=== PATIENT | female | born 1995 | race Caucasian/White ===

== ENCOUNTER 2023-11-10 11:08 | Day surgery (SDC) | payer BC, SELFPAY ==
[2023-11-10] VITALS (7 sets, daily range): BP systolic 114–134; BP diastolic 70–82; PULSE 62–85; RESP 16; TEMP 36.3–36.8; O2SAT 96–100; BMI 28.5
[2023-11-10 11:50] LABS: Internal QC Validated? YES +Cl - CLEAR BKGD; Pregnancy, Urine Negative Negative
--- NOTE | 2023-11-10 13:49 | PCM.HP.BLA ---
History and Physical Date of Admission: 11/10/23 PROBLEM: adnexal mass, pelvic pain ? PAST SURGICAL HISTORY: PAST SURGICAL HISTORY PAST SURGICAL HISTORY Procedure Laterality Date ? MYRINGOTOMY ASPIR&/EUSTACHIAN TUBE NFLTJ ANES ? ? ? Myringotomy/tubes, age 22 months ? TONSILLECTOMY PRIMARY/SECONDARY <AGE 12 ? 08/31/2017 ? Tonsillectomy ? ? PAST MEDICAL HISTORY: PAST MEDICAL HISTORY PAST MEDICAL HISTORY Diagnosis Date ? Chronic insomnia 04/07/2018 ? Elbow fracture 2020 ? bilateral - tripped by a dog ? GERD (gastroesophageal reflux disease) 10/15/2013 ? PMH - PAST MEDICAL HISTORY OF ? ? History of varicella disease age 9 ? Spastic colitis 11/04/2011 ? Sprain and strain of unspecified site of shoulder and upper arm 12/10/2010 ? ? SUBJECTIVE: Pelvic pain x 1 month that is worsening ? SOCIAL HISTORY: SOCIAL HISTORY Social History ? Tobacco Use ? Smoking status: Never ? Smokeless tobacco: Never ? Tobacco comments: ? ? exposed to secondhand smoke Vaping Use ? Vaping Use: Never used Substance Use Topics ? Alcohol use: Yes ? ? Comment: Rare ? Drug use: Yes ? ? Types: Marijuana ? ? ALLERGIES ALLERGIES Allergen Reactions ? Shellfish Containin* Anaphylaxis ? Bactrim [Sulfametho* Rash ? Sulfa (Sulfonamide * Rash ? Current Outpatient Medications on File Prior to Visit Medication Sig ? amoxicillin-clavulanate potassium (AUGMENTIN) 875-125 mg per tablet Take 1 tablet by mouth two times a day for 10 days. ? dicyclomine (BENTYL) 10 mg capsule Take 1 capsule by mouth two times a day as needed. ? L.acidophilus-B.animalis-B.longum (FLORAJEN DIGESTION) 15 billion cell capsule Take 1 capsule by mouth once daily. ? etonogestrel (NEXPLANON) subdermal implant 68 mg 1 Each by SUBDERMAL route as directed. ? lamoTRIgine (LAMICTAL) 200 mg tablet ? ? escitalopram oxalate (LEXAPRO) 10 mg tablet Take 1 tablet by mouth once daily. (Patient taking differently: Take 20 mg by mouth once daily. Patient states she takes 1/2 tab daily) ? fexofenadine ER (SUSAN ALLERGY) 180 mg tablet Take 1 tablet by mouth once daily. ? No current facility-administered medications on file prior to visit. ? OBJECTIVE: ? VITALS: BP 118/64 Wt 186 lb (84.4 kg) LMP 10/16/2023 (Exact Date) BMI 28.28 kg/m? ? HEENT: Normocephalic, atraumatic, Mucus membranes moist without lesions. ? SKIN: No lesions. ? CHEST: No increased respiratory effort. ? HEART: Regular rate. ? BACK: Nontender with no CVA tenderness. ? ABDOMEN: Soft, +tender, non-distended, no hepatosplenomegaly. ? LOWER EXTREMITIES: There was no pitting edema, no palpable cords and no skin changes. ? ? ? ASSESSMENT: pre op, adnexal mass, pelvic pain ? PLAN: 1) Discussed likely dermoid cyst of ovary based on pelvic ultrasound. Given pain worsening over last 1 month, recommend surgical intervention. Discussed r/b/a laparoscopic removal of adnexal mass, possible oophorectomy, possible salpingectomy, possible laparotomy. She understands an ovary and/or fallopian tube could be removed. She understands she may need an open incision to remove the mass. The rationale for the proposed surgery was discussed in addition to risks, benefits, and alternatives. General pre- and post-operative care was reviewed. Questions were answered. After discussion, the patient indicated a desire to proceed with the planned surgery. Assessment & Plan Assessment/Plan (1) Acute pelvic pain, female: (2) Ovarian cyst, left: PLAN: Plan Patient had acute worsening of pain today and was seen in office. Has nausea, unable to eat b/c of pain, unable to rest or get comfortable, required dilauded in ED. D/w her suspicion for torsion or intermittent torsion even w/ blood flow noted on today's pelvic US. D/w her r/b/a to laparascopy w/ reversal of torsion and possible ovarian cystectomy, possible oophorectomy or salpingoophorectomy depending on findings. Quetisons answered. Consent resigned. will proceed today TOMASZ.
--- NOTE | 2023-11-10 14:32 | PCM.DC ---
Discharge Instructions Diet Discharge Diet: No restrictions (Increase fluid intake for the next 48 hours.) Activity Discharge Activity: May Shower Return to work on:: 11/17/23 May resume sexual activity in: 1-2 weeks Additional Activity Instructions:: Ambulate often the next week after surgery. Nothing in the vagina for 7-14 days days. Dressing / Incision Call your doctor if your incision/area has: Continuous Slow Oozing, Sudden Increased Bleeding, Increased Pain/ Swelling, Increased Redness and Foul Smelling Discharge Call your doctor if you observe: Fever of 101 or Higher Additional Dressing/Incision Instructions:: Your incisions have skin glue, they can get wet. Leave the glue on for at least 10 days. No lifting > 15 lbs x 2 weeks Follow Up Care Please Follow Up With: Evelia Chapa MD When: Call [phone] for a postop visit or as needed or send a MeetCast message for nonurgent concerns. Test Results: Test results from this visit will be discussed in further detail at your follow-up appointment, if applicable. Discharge Plan Admission Primary Reason for Your Visit: pelvic pain, left ovarian dermoid cysts, left ovarian cystectomies Attending Provider: Evelia Chapa Primary Care Provider: CHEKO AHMADI Discharge Orders/Prescriptions Prescriptions: New ibuprofen [ibuprofen] 600 mg tablet 600 mg PO Q6H PRN (Reason: Pain) 20 Days Qty: 60 1RF Continued lamotrigine 200 mg tablet 200 mg PO DAILY dicyclomine 10 mg capsule 10 mg PO BID PRN PRN (Reason: abdominal pain) amoxicillin-pot clavulanate 875-125 mg tablet 1 tab PO BID escitalopram oxalate 20 mg tablet 20 mg PO DAILY carisoprodol [Soma] 350 mg tablet 350 mg PO QHS fexofenadine [Hodan Allergy] 180 mg tablet 180 mg PO Q24H Referrals / Follow Up: CEHKO AHMADI [Other] Disposition Disposition (needs filled in before D/C Order can be placed): Home, Self Care
--- NOTE | 2023-11-10 15:05 | OV_PTH ---
PATIENT: WOLFGANG PACHECO LOC: [facility] [place] U#:[id number] AGE/SX: 28/F ROOM: RE11/10/[address]: Dr. Evelia Chapa MD : [id number] BED: DIS: 11/10/2023 SPEC #: [id number] RECD: 11/10/23 18:23 STATUS: LUCIUS REAlondra #: [id number] FCO: 11/10/23 15:[address]: Evelia Chapa DEPT: SURGICAL PATHOLOGY RECD BY: Anny Cooley Tissues: OVARIAN CYST Procedures: Decalcification bone/plaque Surgery Specimen Level IV HEADER OPERATION: Laparoscopic, ovarian cystectomies PRE-OP DIAGNOSIS: Acute pelvic pain, left ovarian cyst TISSUE SUBMITTED: left ovarian cysts MICROSCOPIC DIAGNOSIS Left ovarian cysts, cystectomies; Mature cystic teratoma x2 (dermoid cysts). SJ/mr 11/14/23 MICROSCOPIC DESCRIPTION Slides are reviewed. GROSS DESCRIPTION Received in fixative is one container labeled with the patient's name and designated Left ovarian cysts. The specimen consists of two cysts weighing in aggregate 21gm. One of the cysts with focal area of rupture measures 4.0 x 3.0x 1.5cm. Sections reveal it is filled with hair and sebum like material. Focal area of bone formation is also noted. Second cyst measures 4.0 x 3.5 x 2.0cm. It Is filled with sebum like material. Supervisor Machine Setter sections from both cysts are submitted in 4 cassettes. Cassette 4 is submitted after decalcification. Araceli 11/11/2023 TC:1 CPT: 98121, 38164
[2023-11-10] MEDS: Bupivacaine Mpf 0.5% 30 ML VIAL (15:45)
--- NOTE | 2023-11-10 15:57 | OP.PCM_ITS ---
Problems Associated Problem List Diagnoses (1) Ovarian cyst, left: (2) Acute pelvic pain, female: Report of Operation Date of Procedure: 11/10/23 Pre-Operative Diagnosis: acute pelvic pain, left ovarian cysts Post-Operative Diagnosis: same + 2 left ovarian teratomas Surgery/Procedure Performed:: Laparoscopic left ovarian cystectomies (2) Description of Surgical Findings:: normal uterus tubes and right ovary, otherwise normal peritoneal cavity, left ovary w 2 large cysts w/ hair and sebaceous material Surgeon: Evelia Chapa supervisor safety deposit: Symone Gaytan MS3 Type of Anesthesia: General Anesthesiologist: Shana Koch Special Medications: none Specimen's removed: left ovarian cysts (2) Drains: none Estimated Blood Loss (mL): 20 Fluids Replaced: 1100 Description of Procedure: The patient was taken to the operating room where she was prepped and draped in the dorsolithotomy position. A weighted speculum was placed in the vagina and the anterior lip of the cervix was grasped with a tenaculum. The [employer] uterine manipulator was placed and the remainder of the instruments were removed from the vagina. Attention was turned to the abdomen. All port sites were infiltrated with 0.5% Marcaine before skin incisions were made. A 5 mm intraumbilical incision was made. The anterior abdominal wall was tented up with 2 towel clamps while a 5 mm blade less trocar and sleeve were directly inserted. Intraperitoneal placement was confirmed with the laparoscope. The pneumoperitoneum was created and the underlying abdominal contents were intact. The patient was placed in Trendelenburg. Right and left lower quadrant ports were placed under direct visualization lateral to the inferior epigastric vessels. The bowel was swept away and the above findings were noted. Decision was made to put a left upper quadrant port and this was placed under direct visualization after the skin was infiltrated with half percent Marcaine solution. Left ovary was held on top of the uterus and cautery was used to make an incision in the first cyst. The cyst was peeled open slightly and suction vamp seamer was used to remove as much of the liquid material as possible. The second cyst was ruptured and again more material exuded and there was more hair in the cyst. After is much of the cyst material was possible was extracted peeled the cyst santillan off the ovary. There were 2 separate cyst santillan. Extensive irrigation of the pelvis was performed to remove as much of the sebaceous material as possible and any tears. Umbilical port was then stretched and a 10 mm bag placed umbilical port and the cyst wall was an remaining cyst material placed into the bags and removed through the umbilicus. Suction vamp seamer was then used to again irrigate as much of the sebaceous and hair material out as possible. A grasper was used to remove some hairs. Surgicel fibrillar was placed in the cyst bed and the ovary folded on top of it and no active bleeding was noted. The lateral ports were removed under direct visualization and no active bleeding was noted. The pneumoperitoneum was released. The skin incisions were closed with Monocryl suture in a subcuticular fashion and skin glue. The vaginal instruments were removed. A 2-0 Vicryl [id number] suture was placed through the bleeding tenaculum sites and hem ostasis was noted. And the vaginal sweep was completed by me. The procedure was performed by me with assistance. All sponge and needle counts were correct and the patient was taken to the recovery room in stable condition. Grafts/Implants Used: none Procedure Start Time: 14:42 Procedure Stop Time: 15:54 Complications none Admit VTE Documentation VTE Present on Admission: No VTE Mechan Device Prophylaxis: SCD's VTE Pharm Prophylaxis ordered?: No Reason prophylaxis not ordered:: Procedure Not Indicated
== END 2023-11-10 17:25 | disposition home or self-care (01) ==
LOC: SDC 11:16 → AC 11:18
PROVIDERS: Anesthesiology; Referring Provider Obstetrics & Gynecology; Visit Provider Obstetrics & Gynecology
PROC: (CPT 58662; principal; 2023-11-10 14:50)
DX: D27.1 Benign neoplasm of left ovary (principal); F32.A Depression, unspecified; F41.9 Anxiety disorder, unspecified; K21.9 Gastro-esophageal reflux disease without esophagitis; Z79.899 Other long term (current) drug therapy
CPT/HCPCS: 58662; 00840; 81025; 88305; 88311; J7120; J2405